=== PATIENT | female | born 1980 | race Caucasian/White ===

== ENCOUNTER 2020-11-14 07:16 | Emergency (ER) | payer OTHER ==
[~2020-11-14] VITALS: Ht 165.1 cm; Wt 74.8 kg
[2020-11-14 07:42] VITALS: BP_SYST 118
--- NOTE | 2020-11-14 07:45 | NUR ---
Patient to ER bed 3 to gown for evaluation. Side rails up. Report given to Juan MADRIGAL.
[2020-11-14] MEDS ORDERED: NACL 0.9% 1,000 ML IV ONE (08:00)
--- NOTE | 2020-11-14 08:10 | NUR ---
Received pt to bed 3, AAOX4, cc left flank pain x1 week radiating to front. Pt states comparable to previous urine infection. Urine collected, sent to LAB, blood drawn, IVL, HCG Negative. Awaiting disposition.
[2020-11-14 08:21] LABS: BILIRUBIN,URINE NEGATIVE (NEGATIVE); BLOOD, URINE 1+ (NEGATIVE); CLARITY/URINE SL CLOUDY (CLEAR); COLOR,URINE YELLOW (YELLOW); GLUCOSE,URINE NEGATIVE (NEGATIVE); KETONES,URINE 1+ (NEGATIVE); LEUKOCYTE ESTERASE ,URINE 1+ (NEGATIVE); NITRITE, URINE POSITIVE (NEGATIVE); PROTEIN URINE 1+ (NEGATIVE)
[2020-11-14 08:31] LABS: BACTERIA,URINE MANY /HPF (None Seen); WBC,URINE >100 /HPF (0-3)
[2020-11-14 08:32] LABS: TRICHOMONAS,URINE None Seen /HPF (None Seen); YEAST,URINE None Seen /HPF (None Seen)
[2020-11-14 08:34] LABS: BASOPHILS % (AUTO) 0.6 % (0.0-2.0); EOSINOPHILS % (AUTO) 0.2 % (0.0-4.0); HEMATOCRIT 35.2 % (36-48); HEMOGLOBIN 11.4 g/dL (12.0-16.0); LYMPHOCYTES # (AUTO) 0.5 K/uL (1.0-5.5); LYMPHOCYTES % (AUTO) 10.3 % (20.5-51.5); MEAN CORPUSCULAR HEMOGLOBIN 24 pg (27-31); MEAN CORPUSCULAR HGB CONC 32 % (32-36); MEAN CORPUSCULAR VOLUME 73 fL (79.0-98.0); MONOCYTES # (AUTO) 0.5 K/uL (0.0-1.0); MONOCYTES % (AUTO) 9.9 % (1.7-9.3); NEUTROPHILS # (AUTO) 4.1 K/uL (1.8-7.7); PLATELET COUNT (AUTO) 182 K/uL (130-430); RED CELL DISTRIBUTION WIDTH 16.1 % (9.0-15.0); WHITE BLOOD COUNT (AUTO) 5.2 K/uL (4.8-10.8)
[2020-11-14 09:12] LABS: CALCIUM 9.1 mg/dL (8.4-11.0); CREATININE 0.61 mg/dL (0.55-1.30); POTASSIUM 3.8 mmol/L (3.5-5.1)
[2020-11-14 09:17] LABS: ALBUMIN 3.8 g/dL (3.4-4.8); TOTAL BILIRUBIN 0.3 mg/dL (0.0-1.0)
[2020-11-14] MEDS ORDERED: SULF1TAB48 PO (09:41)
--- NOTE | 2020-11-14 10:16 | NUR ---
Pt discharged home stable with steady gait, AAOX4, with discharge instructions and prescription sent to pharmacy electronically
--- NOTE | 2020-11-17 18:19 | NUR ---
SPOKE WITH PT, CURRENTLY ADMITTED TO [facility].
== END 2020-11-14 10:16 | disposition home or self-care (01) ==
LOC: SED 07:16
DX: N12 Tubulo-interstitial nephritis, not specified as acute or chronic (principal); R05.9 Cough, unspecified; F12.90 Cannabis use, unspecified, uncomplicated; Z88.1 Allergy status to other antibiotic agents; Z79.899 Other long term (current) drug therapy
CPT/HCPCS: 36415; 80053; 81000; 83690; 85025; 87086; 96360; 99283; J7030